=== PATIENT | male | born 1990 | race Caucasian/White ===

== ENCOUNTER 2017-10-06 13:18 | Emergency (ER) | payer OTHER ==
[~2017-10-06] VITALS: Ht 175.3 cm; Wt 83.9 kg
[2017-10-06 13:20] VITALS: BP 141/73; Ht 175.3 cm; Wt 83.9 kg
== END 2017-10-06 13:40 | disposition home or self-care (01) ==
LOC: ED 13:18
DX: Z02.89 Encounter for other administrative examinations (principal); S00.81XA Abrasion of other part of head, initial encounter; W22.8XXA Striking against or struck by other objects, initial encounter; Y93.89 Activity, other specified; Y99.8 Other external cause status; Y92.89 Other specified places as the place of occurrence of the external cause

== ENCOUNTER 2019-09-30 01:42 | Emergency (ER) | payer OTHER | END 2019-09-30 04:05 | disposition other institution (70) | LOC: ED 01:42 | DX: Z02.89 Encounter for other administrative examinations (principal) | CPT/HCPCS: J7030 ==

== ENCOUNTER 2019-09-30 01:42 | Emergency (ER) | payer SELFPAY ==
[~2019-09-30] VITALS: Ht 172.7 cm; Wt 83.9 kg
[2019-09-30 01:54] VITALS: Ht 172.7 cm; Wt 83.9 kg
[2019-09-30 03:02] LABS: PLATELET COUNT 293 x10^3mcL (130-400); RED CELL DISTRIBUTION WIDTH 12.8 % (11.5-14.5)
[2019-09-30 03:13] LABS: CHLORIDE SERUM 102 mmol/L (98-107); CREATININE SERUM 1.5 mg/dL (0.7-1.3); GFR1 60 mL/min; GLUCOSE SERUM 78 mg/dL (74-106); POTASSIUM SERUM 3.1 mmol/L (3.5-5.1); SODIUM SERUM 141 mmol/L (136-145)
[2019-09-30 03:14] LABS: ALKALINE PHOSPHATASE 73 U/L (46-116); ALT/SGPT 95 U/L (16-63); AST/SGOT 92 U/L (15-37); BILIRUBIN TOTAL 0.77 mg/dL (0.20-1.00); CALCIUM 8.9 mg/dL (8.5-10.1); TOTAL PROTEIN, SERUM 7.9 g/dL (6.4-8.2)
[2019-09-30 03:16] LABS: BASOPHIL % 0.2 % (0-2)
[2019-09-30 03:41] VITALS: BP 142/72
== END 2019-09-30 04:05 | disposition other institution (70) ==
LOC: ED 01:42
PROVIDERS: Emergency Medicine
DX: F19.10 Other psychoactive substance abuse, uncomplicated (principal); E87.6 Hypokalemia
CPT/HCPCS: G0480; J2060

== ENCOUNTER 2019-12-10 07:24 | Emergency (ER) | payer SELFPAY ==
[~2019-12-10] VITALS: Ht 175.3 cm; Wt 81.6 kg
[2019-12-10 07:29] VITALS: BP 143/89; Ht 175.3 cm; Wt 81.6 kg
== END 2019-12-10 12:05 | disposition home or self-care (01) ==
LOC: ED 07:24
DX: F41.9 Anxiety disorder, unspecified (principal)
CPT/HCPCS: Q0092